=== PATIENT | female | born 1975 | race Caucasian/White ===

== ENCOUNTER → 2017-12-14 | Outpatient (CLI) | payer OTHER ==
--- NOTE | 2017-12-14 10:58 | MM ---
Reason for exam: screening (asymptomatic). Baseline mammogram. History: Took hormonal contraceptives for 3 years beginning at age 17. Physical Findings: Nurse did not find any significant physical abnormalities on exam. MG Screening Mammo w CAD Bilateral CC and MLO view(s) were taken. The breast tissue is heterogeneously dense. This may lower the sensitivity of mammography. Finding: There are typically benign round calcifications in both breasts. There is no discrete abnormality. These results were verbally communicated with the patient and result sheet given to the patient on 12/14/17. ASSESSMENT: Negative, BI-RAD 1 RECOMMENDATION: Routine screening mammogram of both breasts in 1 year.
== END | disposition home or self-care (01) ==
LOC: RADMAMWWP 09:21
PROVIDERS: ATTEND Family Medicine
DX: Z12.31 Encounter for screening mammogram for malignant neoplasm of breast (principal)
CPT/HCPCS: 77067

== ENCOUNTER → 2018-03-15 | Outpatient (CLI) | payer OTHER ==
--- NOTE | 2018-03-15 22:35 | CONS ---
CONSULTATION DATE OF SERVICE: 03/15/2018 A 42-year-old lady has been evaluated in the sleep center for possible obstructive sleep apnea-hypopnea syndrome. HISTORY OF PRESENT ILLNESS/SLEEP WAKE EVALUATION: The patient's usual sleep schedule on working days is from 8:30 to 9:30 p.m. until 4:00 or 5:00 am and on weekends until about 6:00 a.m. No problems with falling asleep. She reads in her bedroom. Usually sleeps on the side position with snoring and awakenings from sleep several times. Positive history of sleep talking and some possibly restless legs symptoms. During the day, the patient may feel sleepiness. [place] Sleepiness Scale is 10, but usually she does not take naps because no time. She may see some vivid dreams during the sleep, but it is more at the beginning of the night, usually in the second part of the night. Usually she wakes up with these weird dreams. PAST MEDICAL HISTORY: Positive for hypertension. PAST SURGICAL HISTORY: Cholecystectomy and D and C. SOCIAL HISTORY: Positive for smoking less than 1 pack a day for about 10 years. Alcohol consumption rarely. FAMILY HISTORY: Hypertension, heart problems, sinus headaches, emphysema, sleep apnea, snoring, thyroid problems for her mom and restless legs by her dad. REVIEW OF SYSTEMS: Awakenings from sleep, some sleepiness during the day. PHYSICAL EXAM: A 42-year-old lady without distress. BP 152/91 on left arm: 151/83 on the right arm, pulse 95, R 16, height 5 feet 9 inches, weight 221, BMI 32.6, temperature 98.0. Oxygen saturation on room air 99%. Oropharynx low position of soft palate. Neck is 14-1/2 inches in circumference. LUNGS: Clear to percussion and to auscultation. Good air exchange. No wheezing or rhonchi. HEART S1, S2 regular. No murmurs, gallops, or rubs. ABDOMEN: Obese. Soft and nontender. Bowel sounds are present. No organomegaly appreciated. EXTREMITIES: No clubbing or cyanosis. TELEMEDICINE PHYSICIAN Awake, alert, and oriented X3. Cranial nerves 2 to 7 intact. There is no fasciculation or atrophy. noted. No focal deficits observed IMPRESSION: 1. Snoring, awakenings from sleep, low position of soft palate, sleepiness. [place] Sleepiness Scale is 10. Obstructive sleep apnea-hypopnea syndrome. 2. Mild obesity BMI 32.6. 3. Restless leg symptoms. 4. Hypertension. 5. Status post cholecystectomy. 6. Status post D and C. PLAN: 1. Polysomnography for evaluation of patient's breathing during sleep. 2. CPAP/BiPAP titration if sleep study confirms obstructive sleep apnea-hypopnea syndrome. 3. Preferable position during sleep on the side. 4. No driving if patient feels any sleepiness. 5. I will see patient for follow up visit to explain results of testing and following plan. Thank you very much for referring this patient for consultation. Sincerely, Wolf Lane MD, PhD, FAASM Diplomat of [place] [employer] [place] [employer] Mainframe Systems Engineer of [facility] [place] MAGDA / PAULINO: [id number] /
== END | disposition home or self-care (01) ==
LOC: SLEEP 16:25
PROVIDERS: ATTEND Internal Medicine
DX: G47.33 Obstructive sleep apnea (adult) (pediatric) (principal); G25.81 Restless legs syndrome; M27.8 Other specified diseases of jaws; I10 Essential (primary) hypertension; E66.9 Obesity, unspecified; Z68.32 Body mass index [BMI] 32.0-32.9, adult; Z87.891 Personal history of nicotine dependence; Z90.49 Acquired absence of other specified parts of digestive tract; Z33.2 Encounter for elective termination of pregnancy
CPT/HCPCS: 99211

== ENCOUNTER → 2018-06-27 | Outpatient (CLI) | payer OTHER ==
--- NOTE | 2018-06-27 17:15 | PN ---
PROGRESS NOTE DATE OF SERVICE: 06/27/2018 This patient is a 42-year-old lady who has been followed in the sleep center for treatment of obstructive sleep apnea-hypopnea syndrome. Recently patient had a polysomnogram and CPAP titration and we discussed results of her sleep study in detail. Diagnostic sleep study showed severe sleep apnea. After titration patient received a CPAP unit, started to use it, and today is her first visit after she received her CPAP machine. I checked her reading from the machine. Usage is 100% of the nights. For 97% of the nights, , she is using it more than 4 hours. Average usage is 6 hours and 37 minutes. CPAP pressure is 9 cm of water. Apnea-hypopnea index reading from the machine is only 0.5. Leak 95% is 13.7, which is fine. Patient sleeps better with the machine. She feels better during the day, does not feel sleepy anymore, does not need to drink coffee during the day. [place] Sleepiness Scale has decreased to 3. Medications are lisinopril and vitamin E, D, B12. PHYSICAL EXAMINATION: GENERAL A pleasant lady without distress. VITAL SIGNS: BP 142/83, HR 91, RR 18, weight 226.8, temperature 99.3. Oxygen saturation at room air 98%. HEENT: PERRLA, EOMI. Evaluation of oropharynx showed tongue protrudes midline; low position of soft palate. NECK: Supple. No JVD. Thyroid is not palpable. LUNGS: Clear to percussion and to auscultation. Good air exchange. No wheezing or rhonchi. HEART: S1, S2 regular. No murmurs, gallops or rubs. ABDOMEN: Slightly obese. EXTREMITIES : No clubbing or cyanosis. RESERVOIR ENGINEERING MANAGER: Awake, alert, and oriented X3. Cranial nerves 2 to 7 intact. There is no fasciculation or atrophy. noted. No focal deficits observed. IMPRESSION: 1. Severe obstructive sleep apnea-hypopnea syndrome; apnea-hypopnea index 38.4 with oxygen desaturation to 77.2%, under full control with CPAP. Patient demonstrated 100% compliance with treatment, benefitting from treatment. 2. Hypertension. 3. Mild obesity. 4. Status post cholecystectomy. 5. Status post dilatation and curettage. PLAN: 1. Patient will continue to use her CPAP equipment every night for the whole night. 2. Losing weight. 3. Sleep hygiene with regular time in bed for at least 8 hours. 4. No driving if feeling any sleepiness. 5. We will maintain prescription for all necessary CPAP supplies. 6. Follow-up visit in about 10 months or earlier if patient has any problems. Thank you very much for allowing me to participate in the management of your patient. Sincerely, Wolf Lane MD, PhD, FAASM Diplomat of [place] [employer] [place] [employer] Oil And Gas Specialist of [facility] [place] MMODL / IJN: [id number] /
== END | disposition home or self-care (01) ==
LOC: SLEEP 15:15
PROVIDERS: ATTEND Internal Medicine
DX: G47.33 Obstructive sleep apnea (adult) (pediatric) (principal); I10 Essential (primary) hypertension; E66.9 Obesity, unspecified; Z99.89 Dependence on other enabling machines and devices; Z79.899 Other long term (current) drug therapy; Z90.49 Acquired absence of other specified parts of digestive tract; Z98.890 Other specified postprocedural states

== ENCOUNTER → 2019-09-11 | Outpatient (CLI) | payer OTHER ==
--- NOTE | 2019-09-11 08:41 | US ---
EXAMINATION TYPE: US abdomen limited DATE OF EXAM: 09/11/2019 COMPARISON: NONE CLINICAL HISTORY: R10.32 left lower quad pain. LLQ Pain TECHNIQUE/FINDINGS: Targeted ultrasound was performed in the area of patient's pain within the left l ower quadrant imaging. Area of pain near umbilicus question possible break in wall no movement seen d uring scan. This measures approximately 0.5 cm. IMPRESSION: 0.5 cm periumbilical hernia is seen without protrusion of bowel. Real-time scanning was performed by the counter intelligence utilizing Valsalva and additional dynamic maneuve rs to assess for hernia. Images of the contralateral side were also acquired for direct comparison.
== END | disposition home or self-care (01) ==
LOC: RADUSWWP 07:55
PROVIDERS: ATTEND Family Medicine
DX: K42.9 Umbilical hernia without obstruction or gangrene (principal); Z88.0 Allergy status to penicillin
CPT/HCPCS: 76705

== ENCOUNTER → 2020-10-28 | Outpatient (CLI) | payer OTHER ==
--- NOTE | 2020-11-02 08:57 | MM ---
Reason for exam: screening (asymptomatic). Last mammogram was performed 2 years and 10 months ago. History: Took hormonal contraceptives for 3 years beginning at age 17. Physical Findings: A clinical breast exam by your physician is recommended on an annual basis and results should be correlated with mammographic findings. MG Screening Mammo w CAD Bilateral CC and MLO view(s) were taken. Prior study comparison: December 14, 2017, bilateral MG screening mammo w CAD. There are scattered fibroglandular densities. No significant changes when compared with prior studies. ASSESSMENT: Benign, BI-RAD 2 RECOMMENDATION: Routine screening mammogram of both breasts in 1 year.
== END | disposition home or self-care (01) ==
LOC: RADMAMWWP 09:09
PROVIDERS: ATTEND Family Medicine
DX: Z12.31 Encounter for screening mammogram for malignant neoplasm of breast (principal)
CPT/HCPCS: 77067

== ENCOUNTER 2021-11-17 16:01 | Emergency (ER) | payer OTHER ==
[2021-11-17 16:51] VITALS: BP 167/105; PULSE 95; RESP 16; TEMP 97.8
[2021-11-17 19:22] LABS: Basophils # (A) 0.1 k/uL (0-0.2); Basophils % (A) 0 %; Eosinophils # (A) 0.3 k/uL (0-0.7); Eosinophils % (A) 2 %; HCT 42.9 % (34.0-46.0); HGB 14.2 gm/dL (11.4-16.0); Lymphocytes # (A) 1.8 k/uL (1.0-4.8); Lymphocytes % (A) 14 %; MCH 32.2 pg (25.0-35.0); MCHC 33.1 g/dL (31.0-37.0); MCV 97.2 fL (80.0-100.0); Mean Platelet Volume 7.5; Monocytes # (A) 0.3 k/uL (0-1.0); Monocytes % (A) 2 %; Neutrophils # (A) 10.9 k/uL (1.3-7.7); Neutrophils % (A) 81 %; Platelet Count 290 k/uL (150-450); RBC 4.41 m/uL (3.80-5.40); RDW 12.3 % (11.5-15.5); WBC 13.4 k/uL (3.8-10.6)
[2021-11-17 19:27] LABS: Appearance,Urine Clear (Clear); Bacteria,Urine Rare /hpf; Bilirubin,Urine Negative (Negative); Blood,Urine Small (Negative); Color,Urine Yellow; Glucose,Urine (UA) Negative (Negative); Ketones,Urine 1+ (Negative); Leukocyte Esterase,Urine Negative (Negative); Mucus,Urine Rare /hpf; Nitrite,Urine Negative (Negative); Protein,Urine Negative (Negative); RBC,Urine 3 /hpf (0-5); Specific Gravity,Urine 1.007 (1.001-1.035); Squamous Epithelial Cell,Urine 3 /hpf (0-4); Urobilinogen,Urine <2.0 mg/dL (<2.0); WBC,Urine 1 /hpf (0-5)
[2021-11-17 19:31] LABS: ALT 16 U/L (4-34); AST 22 U/L (14-36); African American GFR (CKD) >90 (>60 ml/min/1.73 sqM); Alkaline Phosphatase 66 U/L (38-126); Anion Gap 5 mmol/L; Blood Urea Nitrogen 7 mg/dL (7-17); Calcium 9.2 mg/dL (8.4-10.2); Carbon Dioxide 27 mmol/L (22-30); Chloride 103 mmol/L (98-107); Glucose 105 mg/dL (74-99); Non-African American GFR(CKD) >90 (>60 ml/min/1.73 sqM); Potassium 3.9 mmol/L (3.5-5.1); Sodium 135 mmol/L (137-145); Total Bilirubin 0.5 mg/dL (0.2-1.3); Total Protein 6.9 g/dL (6.3-8.2)
--- NOTE | 2021-11-17 19:48 | CT ---
EXAMINATION TYPE: CT abdomen pelvis w con DATE OF EXAM: 11/17/2021 COMPARISON: None available HISTORY: Umbilical hernia. CT DLP: 1425.5 mGycm Automated exposure control for dose reduction was used. TECHNIQUE: Helical acquisition of images was performed from the lung bases through the pelvis. CONTRAST: Performed without Oral Contrast and with IV Contrast, patient injected with 100 mL of Isovue 300. FINDINGS: LUNG BASES: No significant abnormality is appreciated. LIVER/GB: No acute abnormality is appreciated. Cholecystectomy. PANCREAS: No significant abnormality is seen. SPLEEN: No acute abnormality is seen. Incidental 2.3 cm low attenuating focus in the lateral spleen. ADRENALS: No significant abnormality is seen. KIDNEYS: No acute abnormality is seen. Multiple left and few right renal cysts measuring up to 8 mm. Also 2 mm nonobstructing left renal calculus. FREE AIR: No free air is visualized. RETROPERITONEAL ADENOPATHY: None visualized REPRODUCTIVE ORGANS: No significant abnormality is seen URINARY BLADDER: No significant abnormality is seen. PELVIC ADENOPATHY: None visualized. OSSEOUS STRUCTURES: Small to moderate sized fat-containing periumbilical hernia with wall defect jordyn suring 2 cm transverse. No bowel obstruction or free fluid. BOWEL: No significant abnormality is seen. OTHER: None IMPRESSION: SMALL TO MODERATE SIZED PERIUMBILICAL HERNIA. NO BOWEL OBSTRUCTION. INCIDENTAL LOW ATTENUATING SPLENIC FOCUS COMPATIBLE WITH CYSTS. ADDITIONAL CHRONIC AND INCIDENTAL FINDINGS ABOVE.
--- NOTE | 2021-11-17 20:03 | ED ---
Abdominal Pain HPI - General Chief Complaint: Abdominal Pain Stated Complaint: hernia, abd pain Time Seen by Provider: 11/17/21 18:31 Source: patient, family, RN notes reviewed Mode of arrival: wheelchair Limitations: no limitations - History of Present Illness Initial Comments: Patient is a 45 she'll female that presents to the emergency Department due to a concerning bulge in her umbilical area, she notes a history of hernia. Patient notes that prior to arrival she had a soft ball sized bulge to her mid abdomen. She notes since arrival the bulge has reduced on its own. She notes her pain is approximate 2-3 out of 10 with no relief. Patient declined any pain medication this time. He was well-appearing and gets restricted she denied any chest pain shortness breath headache nausea vomiting diarrhea constipation fever fatigue chills. Review of Systems ROS Statement: Those systems with pertinent positive or pertinent negative responses have been documented in the HPI. ROS Other: All systems not noted in ROS Statement are negative. Past Medical History Past Medical History: Hypertension History of Any Multi-Drug Resistant Organisms: None Reported Additional Past Surgical History / Comment(s): d&c Past Psychological History: No Psychological Hx Reported Smoking Status: Current some day smoker Past Alcohol Use History: None Reported Past Drug Use History: None Reported General Exam Limitations: no limitations General appearance: alert, in no apparent distress Head exam: Present: atraumatic, normocephalic, normal inspection Eye exam: Present: normal appearance, PERRL, EOMI. Absent: scleral icterus, conjunctival injection, periorbital swelling ENT exam: Present: normal exam, mucous membranes moist Neck exam: Present: normal inspection Respiratory exam: Present: normal lung sounds bilaterally. Absent: respiratory distress, wheezes, rales, rhonchi, stridor Cardiovascular Exam: Present: regular rate, normal rhythm, normal heart sounds. Absent: systolic murmur, diastolic murmur, rubs, gallop, clicks GI/Abdominal exam: Present: soft, tenderness, normal bowel sounds, hernia (Small periumbilical). Absent: distended, guarding, rebound, rigid Extremities exam: Present: normal inspection, full ROM, normal capillary refill. Absent: tenderness, pedal edema, joint swelling, calf tenderness Neurological exam: Present: alert, oriented X3 Psychiatric exam: Present: normal affect, normal mood Skin exam: Present: warm, dry, intact, normal color. Absent: rash Course Vital Signs 11/17/21 16:48 Temperature 97.8 F Pulse Rate 95 Respiratory 16 Rate Blood Pressure 167/105 O2 Sat by Pulse 96 Oximetry Medical Decision Making - Medical Decision Making 45 she'll female complaining of eye. Umbilical hernia. Labs, CT of the abdomen and pelvis Labs unremarkable within normal limits per Computed tomography scan shows a 2 cm fat-containing hernia with no structural. Patient was informed that results in a school discharge home with follow-up to . Case discussed with Dr. Douglas. - Lab Data Result diagrams: 11/17/21 19:12 11/17/21 19:12 Lab Results 11/17/21 11/17/21 11/17/21 Range/Units 19:12 19:12 19:16 WBC 13.4 H (3.8-10.6) k/uL RBC 4.41 (3.80-5.40) m/uL Hgb 14.2 (11.4-16.0) gm/dL Hct 42.9 (34.0-46.0) % MCV 97.2 (80.0-100.0) fL MCH 32.2 (25.0-35.0) pg MCHC 33.1 (31.0-37.0) g/dL RDW 12.3 (11.5-15.5) % Plt Count 290 (150-450) k/uL MPV 7.5 Neutrophils % 81 % Lymphocytes % 14 % Monocytes % 2 % Eosinophils % 2 % Basophils % 0 % Neutrophils # 10.9 H (1.3-7.7) k/uL Lymphocytes # 1.8 (1.0-4.8) k/uL Monocytes # 0.3 (0-1.0) k/uL Eosinophils # 0.3 (0-0.7) k/uL Basophils # 0.1 (0-0.2) k/uL Sodium 135 L (137-145) mmol/L Potassium 3.9 (3.5-5.1) mmol/L Chloride 103 (98-107) mmol/L Carbon Dioxide 27 (22-30) mmol/L Anion Gap 5 mmol/L BUN 7 (7-17) mg/dL Creatinine 0.54 (0.52-1.04) mg/dL Est GFR (CKD-EPI)AfAm >90 (>60 ml/min/1.73 sqM) Est GFR (CKD-EPI)NonAf >90 (>60 ml/min/1.73 sqM) Glucose 105 H (74-99) mg/dL Calcium 9.2 (8.4-10.2) mg/dL Total Bilirubin 0.5 (0.2-1.3) mg/dL AST 22 (14-36) U/L ALT 16 (4-34) U/L Alkaline Phosphatase 66 (38-126) U/L Total Protein 6.9 (6.3-8.2) g/dL Albumin 4.0 (3.5-5.0) g/dL Urine Color Yellow Urine Appearance Clear (Clear) Urine pH 6.0 (5.0-8.0) Ur Specific [place] 1.007 (1.001-1.035) Urine Protein Negative (Negative) Urine Glucose (UA) Negative (Negative) Urine Ketones 1+ H (Negative) Urine Blood Small H (Negative) Urine Nitrite Negative (Negative) Urine Bilirubin Negative (Negative) Urine Urobilinogen <2.0 (<2.0) mg/dL Ur Leukocyte Esterase Negative (Negative) Urine RBC 3 (0-5) /hpf Urine WBC 1 (0-5) /hpf Ur Squamous Epith Cells 3 (0-4) /hpf Urine Bacteria Rare H (None) /hpf Urine Mucus Rare H (None) /hpf - Radiology Data Radiology results: report reviewed, image reviewed CT of the abdomen and pelvis: Small to moderate sized periumbilical hernia. No bowel obstruction. Incidental low attenuating splenic focus compatible a cyst. Additional chronic and incidental findings as above. Disposition Clinical Impression: Periumbilical hernia, Abdominal pain Disposition: HOME SELF-CARE Condition: Stable Instructions (If sedation given, give patient instructions): Abdominal Pain (ED) Additional Instructions: Please return to the Emergency Department if symptoms worsen or any other concerns. Follow-up with primary care in 1-2 days. Follow-up with GI this is possible. Is patient prescribed a controlled substance at d/c from ED?: No Referrals: John Coker MD [Primary Care Provider] - 1-2 days Ella Friedman MD [STAFF PHYSICIAN] - 1-2 days Time of Disposition: 20:03
== END 2021-11-17 21:00 | disposition home or self-care (01) ==
LOC: EC 16:01
DX: K42.9 Umbilical hernia without obstruction or gangrene (principal); R10.9 Unspecified abdominal pain; I10 Essential (primary) hypertension; F17.200 Nicotine dependence, unspecified, uncomplicated
CPT/HCPCS: 36415; 80053; 85025; 81001; 74177; 99284; Q9967

== ENCOUNTER 2023-01-15 16:57 | Inpatient (IN) | payer OTHER ==
[2023-01-15] MEDS ORDERED: SODIUM CHLORIDE 0.9% 1,000 ML IV STA ×2 (17:34→20:14)
[2023-01-15] MEDS ORDERED: KETOROLAC 15 MG/ML 1 ML VIAL IVP STA (17:34)
[2023-01-15 17:48] LABS: Basophils # (A) 0.1 k/uL (0-0.2); Basophils % (A) 1 %; Eosinophils # (A) 0.1 k/uL (0-0.7); Eosinophils % (A) 1 %; HCT 42.6 % (34.0-46.0); HGB 14.2 gm/dL (11.4-16.0); Lymphocytes % (A) 24 %; MCH 31.4 pg (25.0-35.0); MCHC 33.3 g/dL (31.0-37.0); MCV 94.2 fL (80.0-100.0); Mean Platelet Volume 7.7; Monocytes # (A) 0.4 k/uL (0-1.0); Monocytes % (A) 5 %; Neutrophils # (A) 5.7 k/uL (1.3-7.7); Neutrophils % (A) 68 %; Platelet Count 266 k/uL (150-450); RBC 4.52 m/uL (3.80-5.40); RDW 12.2 % (11.5-15.5); WBC 8.3 k/uL (3.8-10.6)
--- NOTE | 2023-01-15 17:50 | ED ---
Abdominal Pain HPI - General Chief Complaint: Abdominal Pain Stated Complaint: Abd Pain Time Seen by Provider: 01/15/23 17:21 Source: patient, RN notes reviewed Mode of arrival: ambulatory Limitations: no limitations - History of Present Illness Initial Comments: Patient is a 47-year-old female presenting to the emergency room with complaints of lower abdominal pain that began approximately 1 hour prior to her arrival to the emergency room. She denies any associated symptoms including any nausea, vomiting or diarrhea. She reports bowel movement earlier today which was normal in consistency and size were her usual bowel movements. She denies any chest pain, shortness of breath, dysuria, urinary frequency, headache, dizziness, fevers or chills. She has had a previous cholecystectomy. She reports having a known abdominal hernia and states that there was discussion in the past regarding possible surgical intervention but she is not currently following with the surgeon. In addition to her hernia she has a past medical history significa nt for hypertension. - Related Data Home Medications Medication Instructions Recorded Confirmed Cyanocobalamin/Cobamamide [Vitamin 1 tab SUBLINGUAL DAILY 01/15/23 01/15/23 B-12 5,000 Mcg Tab Sl] Loratadine 10 mg PO DAILY 01/15/23 01/15/23 Pseudoephedrine 12Hr [Sudafed 12 60 mg PO Q12HR PRN 01/15/23 01/15/23 Hour] buPROPion XL [Wellbutrin XL] 150 mg PO DAILY 01/15/23 01/15/23 lisinopriL [Zestril] 10 mg PO DAILY 01/15/23 01/15/23 Allergies Allergy/AdvReac Type Severity Reaction Status Date / Time fluticasone [From Flonase] Allergy Swelling Verified 01/15/23 18:13 in back of throat, tingling Penicillins Allergy Rash/Hives Verified 01/15/23 18:13 Review of Systems ROS Statement: Those systems with pertinent positive or pertinent negative responses have been documented in the HPI. ROS Other: All systems not noted in ROS Statement are negative. Past Medical History Past Medical History: Hypertension History of Any Multi-Drug Resistant Organisms: None Reported Past Surgical History: Cholecystectomy Additional Past Surgical History / Comment(s): d&c Past Psychological History: No Psychological Hx Reported Smoking Status: Current some day smoker Past Alcohol Use History: None Reported Past Drug Use History: None Reported General Exam - General Exam Comments Initial Comments: GENERAL: No acute distress, well developed, well nourished. HEENT: Normocephalic, atraumatic. Pupils equal, round, reactive to light. Moist mucous membranes. LUNGS: No respiratory distress. Clear to auscultation, no adventitious sounds, no use of accessory muscles. HEART: Regular rate and rhythm without murmur, rub, or gallop. ABDOMEN: Normal bowel sounds. Soft, non-distended. Upper abdominal tenderness. Nonreducible abdominal wall hernia just above the umbilical region tender but not rigid. No skin discoloration. BACK: Normal inspection. EXTREMITIES: No edema. No tenderness. Moves all extremities. NEUROLOGIC: Alert & oriented x 3. CN II-XII grossly intact. PSYCHIATRIC: Normal affect and behavior. DERMATOLOGIC: Skin intact, without rashes or lesions noted. Limitations: no limitations Course Vital Signs 01/15/23 17:16 Temperature 98 F Pulse Rate 74 Respiratory 18 Rate Blood Pressure 156/82 O2 Sat by Pulse 100 Oximetry Medical Decision Making - Medical Decision Making Was pt. sent in by a medical professional or institution (, PA, FIRE SAFETY INSPECTOR, urgent care, hospital, or halfway...) When possible be specific @ -No Did you speak to anyone other than the patient for history (EMS, parent, family, police, friend...)? What history was obtained from this source @ -No Did you review nursing and triage notes (agree or disagree)? Why? @ -I reviewed and agree with nursing and triage notes Were old charts reviewed (outside hosp., previous admission, EMS record, old EKG, old radiological studies, urgent care reports/EKG's, halfway records)? Report findings @ -Yes CAT scan report from November 2021 reviewed Differential Diagnosis (chest pain, altered mental status, abdominal pain women, abdominal pain men, vaginal bleeding, weakness, fever, dyspnea, syncope, headache, dizziness, GI bleed, back pain, seizure, CVA, palpatations, mental health, musculoskeletal)? @ -Differential Abdominal Pain Women: Appendicitis, Cholecystitis, diverticulosis, ischemic bowel, pancreatitis, hepatitis, UTI, gastroenteritis, AAA, incarcerated hernia, bowel obstruction, constipation, inflammatory bowel, hepatitis, peptic ulcer disease, splenic infarction, perforated viscus, vulvitis, ovarian torsion, PID, kidney stone, placenta abruption, this is not meant to be an all-inclusive list EKG interpreted by me (3pts min.). @ -None done X-rays interpreted by me (1pt min.). @ -KUB: No acute abdominal process noted normal bowel and gas pattern. CT interpreted by me (1pt min.). @ -CT of the abdomen and pelvis with contrast: Ventral wall hernia. Per radiologist dilated loops of bowel concerning for small bowel obstruction. U/S interpreted by me (1pt. min.). @ -None done What testing was considered but not performed or refused? (CT, X-rays, U/S, l abs)? Why? @ -None What meds were considered but not given or refused? Why? @ -None Did you discuss the management of the patient with other professionals (professionals i.e. , PA, FIRE SAFETY INSPECTOR, lab, RT, psych nurse, perinatal social worker, java software engineer, teacher, geological technical officer, pillowcase folder)? Give summary @ -Spoke with Dr. Madrigal on-call surgeon regarding patient presentation and workup. She advised will stay on consult but would like patient admitted to medicine. Spoke with Dr. Olivas on for patient's primary care provider Dr. Coker who advised okay for medical admission but wishes consult for surgery to be changed to Dr. Franco. Will place admission orders and consult Dr. Franco. Was smoking cessation discussed for >3mins.? @ -No Was critical care preformed (if so, how long)? @ -No Were there social determinants of health that impacted care today? How? (Homelessness, low income, unemployed, alcoholism, drug addiction, transportation, low edu. Level, literacy, decrease access to med. care, fci, rehab)? @ -No Was there de-escalation of care discussed even if they declined (Discuss DNR or withdrawal of care, Hospice)? DNR status @ -No What co-morbidities impacted this encounter? (DM, HTN, Smoking, COPD, CAD, Cancer, CVA, ARF, Chemo, Hep., AIDS, mental health diagnosis, sleep apnea, morbid obesity)? @ -None Was patient admitted / discharged? Hospital course, mention meds given and route, prescriptions, significant lab abnormalities, going to OR and other pertinent info. @ -47-year-old female presenting to the emergency room with complaints of abdominal pain with onset approximately one hour prior to presentation without associated symptoms. Will begin workup with CBC, CMP, amylase, lipase, urinalysis and viral swabbing. Will give IV hydration and Toradol for pain and monitor response. Continued mild abdominal pain with nausea will check computed tomography scan of the abdomen and give Zofran for nausea. CBC without abnormalities. CMP demonstrates elevated glucose 183 sodium low 136 no other abnormalities remaining electrolytes normal. Renal function normal, liver function normal, amylase lipase and alkaline phosphatase normal lactic acid normal 1.3. Urinalysis with trace blood and trace glucose rare yeast rare mucus rare sediment negative for leukocyte Estrace or ketones. Urine hCG negative. Viral swabs for COVID, influenza and RSV negative. CT scan demonstrates ventral wall hernia with concern for small bowel obstruction. Spoke with on-call surgeon regarding presentation she advised admission to medicine with evaluation in a.m. Spoke with patient's attending Dr. Olivas regarding surgery's recommendation. He advised okay for admission but changes surgeon to Dr. Franco. Will place admission orders and consult Dr. franco per his request. Will continue I pain medication, nausea medication and IV hydration and keep patient nothing by mouth. Will also order NG tube placement if vomiting occurs. Will admit patient in stable condition to medical surgical unit under Dr. Olivas with surgical consult for ventral wall hernia with small bowel obstruction. Undiagnosed new problem with uncertain prognosis? @ -No Drug Therapy requiring intensive monitoring for toxicity (Heparin, Nitro, In sulin, Cardizem)? @ -No Were any procedures done? @ -No Diagnosis/symptom? @ -Abdominal wall hernia with small bowel obstruction Acute, or Chronic, or Acute on Chronic? @ -Acute on chronic Uncomplicated (without systemic symptoms) or Complicated (systemic symptoms)? @ -Complicated Side effects of treatment? @ -No Exacerbation, Progression, or Severe Exacerbation? @ -No Poses a threat to life or bodily function? How? (Chest pain, [place], [place], pneumonia, PE, COPD, DKA, ARF, appy, cholecystitis, CVA, Diverticulitis, Homicidal, Suicidal, threat to staff... and all critical care pts) @ -Yes Case discussed with Dr. Edge. - Lab Data Result diagrams: 01/15/23 17:35 01/15/23 17:35 Lab Results 01/15/23 01/15/23 01/15/23 Range/Units 17:35 17:35 17:36 WBC 8.3 (3.8-10.6) k/uL RBC 4.52 (3.80-5.40) m/uL Hgb 14.2 (11.4-16.0) gm/dL Hct 42.6 (34.0-46.0) % MCV 94.2 (80.0-100.0) fL MCH 31.4 (25.0-35.0) pg MCHC 33.3 (31.0-37.0) g/dL RDW 12.2 (11.5-15.5) % Plt Count 266 (150-450) k/uL MPV 7.7 Neutrophils % 68 % Lymphocytes % 24 % Monocytes % 5 % Eosinophils % 1 % Basophils % 1 % Neutrophils # 5.7 (1.3-7.7) k/uL Lymphocytes # 2.0 (1.0-4.8) k/uL Monocytes # 0.4 (0-1.0) k/uL Eosinophils # 0.1 (0-0.7) k/uL Basophils # 0.1 (0-0.2) k/uL Sodium 136 L (137-145) mmol/L Potassium 4.0 (3.5-5.1) mmol/L Chloride 102 (98-107) mmol/L Carbon Dioxide 28 (22-30) mmol/L Anion Gap 6 mmol/L BUN 7 (7-17) mg/dL Creatinine 0.55 (0.52-1.04) mg/dL Est GFR (CKD-EPI)AfAm >90 (>60 ml/min/1.73 sqM) Est GFR (CKD-EPI)NonAf >90 (>60 ml/min/1.73 sqM) Glucose 183 H (74-99) mg/dL Plasma Lactic Acid Asim 1.3 (0.7-2.0) mmol/L Calcium 9.1 (8.4-10.2) mg/dL Total Bilirubin 0.3 (0.2-1.3) mg/dL AST 19 (14-36) U/L ALT 18 (4-34) U/L Alkaline Phosphatase 73 (38-126) U/L Total Protein 7.0 (6.3-8.2) g/dL Albumin 4.2 (3.5-5.0) g/dL Amylase 45 (30-110) U/L Lipase 41 (23-300) U/L Urine Color Urine Appearance (Clear) Urine pH (5.0-8.0) Ur Specific Colton (1.001-1.035) Urine Protein (Negative) Urine Glucose (UA) (Negative) Urine Ketones (Negative) Urine Blood (Negative) Urine Nitrite (Negative) Urine Bilirubin (Negative) Urine Urobilinogen (<2.0) mg/dL Ur Leukocyte Esterase (Negative) Urine RBC (0-5) /hpf Urine WBC (0-5) /hpf Ur Squamous Epith Cells (0-4) /hpf Amorphous Sediment (None) /hpf Urine Mucus (None) /hpf Urine Yeast (Budding) (None) /hpf Urine HCG, Qual (Not Detectd) Influenza Type A (PCR) (Not Detectd) Influenza Type B (PCR) (Not Detectd) RSV (PCR) (Not Detectd) SARS-CoV-2 (PCR) (Not Detectd) 01/15/23 01/15/23 01/15/23 Range/Units 17:36 18:30 18:30 WBC (3.8-10.6) k/uL RBC (3.80-5.40) m/uL Hgb (11.4-16.0) gm/dL Hct (34.0-46.0) % MCV (80.0-100.0) fL MCH (25.0-35.0) pg MCHC (31.0-37.0) g/dL RDW (11.5-15.5) % Plt Count (150-450) k/uL MPV Neutrophils % % Lymphocytes % % Monocytes % % Eosinophils % % Basophils % % Neutrophils # (1.3-7.7) k/uL Lymphocytes # (1.0-4.8) k/uL Monocytes # (0-1.0) k/uL Eosinophils # (0-0.7) k/uL Basophils # (0-0.2) k/uL Sodium (137-145) mmol/L Potassium (3.5-5.1) mmol/L Chloride (98-107) mmol/L Carbon Dioxide (22-30) mmol/L Anion Gap mmol/L BUN (7-17) mg/dL Creatinine (0.52-1.04) mg/dL Est GFR (CKD-EPI)AfAm (>60 ml/min/1.73 sqM) Est GFR (CKD-EPI)NonAf (>60 ml/min/1.73 sqM) Glucose (74-99) mg/dL Plasma Lactic Acid Asim (0.7-2.0) mmol/L Calcium (8.4-10.2) mg/dL Total Bilirubin (0.2-1.3) mg/dL AST (14-36) U/L ALT (4-34) U/L Alkaline Phosphatase (38-126) U/L Total Protein (6.3-8.2) g/dL Albumin (3.5-5.0) g/dL Amylase (30-110) U/L Lipase (23-300) U/L Urine Color Yellow Urine Appearance Cloudy H (Clear) Urine pH 7.0 (5.0-8.0) Ur Specific Colton 1.014 (1.001-1.035) Urine Protein Negative (Negative) Urine Glucose (UA) Trace H (Negative) Urine Ketones Negative (Negative) Urine Blood Trace H (Negative) Urine Nitrite Negative (Negative) Urine Bilirubin Negative (Negative) Urine Urobilinogen <2.0 (<2.0) mg/dL Ur Leukocyte Esterase Negative (Negative) Urine RBC 7 H (0-5) /hpf Urine WBC 1 (0-5) /hpf Ur Squamous Epith Cells 3 (0-4) /hpf Amorphous Sediment Rare H (None) /hpf Urine Mucus Rare H (None) /hpf Urine Yeast (Budding) Rare H (None) /hpf Urine HCG, Qual Not Detected (Not Detectd) Influenza Type A (PCR) Not Detected (Not Detectd) Influenza Type B (PCR) Not Detected (Not Detectd) RSV (PCR) Not Detected (Not Detectd) SARS-CoV-2 (PCR) Not Detected (Not Detectd) - Radiology Data Radiology results: report reviewed, image reviewed Disposition Clinical Impression: Hernia of abdominal cavity, with obstruction Disposition: ADMITTED IP TO THIS HOSP Condition: Stable Is patient prescribed a controlled substance at d/c from ED?: No Referrals: John Coker MD [Primary Care Provider] - 1-2 days Time of Disposition: 20:49
--- NOTE | 2023-01-15 18:00 | XR ---
EXAMINATION TYPE: XR KUB DATE OF EXAM: 01/15/2023 5:53 PM INDICATION: Patient age:Female; 47 years old; Reason for study: abdominal pain; PHH. COMPARISON: CT abdomen pelvis on 10/25/2022 TECHNIQUE: One radiographic view of the abdomen was obtained. FINDINGS: The bowel gas pattern is nonspecific without dilated loops of small or large bowel. There i s no evidence for organomegaly or pneumoperitoneum. Cholecystectomy clips in the right upper quadrant . The osseous structures are intact. Pelvic phleboliths are present. Fecal material and gas are dem onstrated throughout the colon and rectum. IMPRESSION: Nonspecific bowel gas pattern without radiographic evidence for acute process.
[2023-01-15 18:01] LABS: ALT 18 U/L (4-34); AST 19 U/L (14-36); African American GFR (CKD) >90 (>60 ml/min/1.73 sqM); Albumin 4.2 g/dL (3.5-5.0); Alkaline Phosphatase 73 U/L (38-126); Amylase 45 U/L (30-110); Anion Gap 6 mmol/L; Blood Urea Nitrogen 7 mg/dL (7-17); Calcium 9.1 mg/dL (8.4-10.2); Carbon Dioxide 28 mmol/L (22-30); Chloride 102 mmol/L (98-107); Glucose 183 mg/dL (74-99); Lipase 41 U/L (23-300); Non-African American GFR(CKD) >90 (>60 ml/min/1.73 sqM); Sodium 136 mmol/L (137-145); Total Bilirubin 0.3 mg/dL (0.2-1.3)
[2023-01-15] MEDS ORDERED: ONDANSETRON 4 MG/2 ML VIAL IVP STA (18:34)
[2023-01-15 18:42] LABS: Amorphous Sediment,Urine Rare /hpf; Appearance,Urine Cloudy (Clear); Bilirubin,Urine Negative (Negative); Blood,Urine Trace (Negative); Budding Yeast,Urine Rare /hpf; Color,Urine Yellow; Glucose,Urine (UA) Trace (Negative); Ketones,Urine Negative (Negative); Leukocyte Esterase,Urine Negative (Negative); Mucus,Urine Rare /hpf; Nitrite,Urine Negative (Negative); Protein,Urine Negative (Negative); RBC,Urine 7 /hpf (0-5); Specific Gravity,Urine 1.014 (1.001-1.035); Squamous Epithelial Cell,Urine 3 /hpf (0-4); Urobilinogen,Urine <2.0 mg/dL (<2.0); WBC,Urine 1 /hpf (0-5)
--- NOTE | 2023-01-15 19:51 | CT ---
EXAMINATION TYPE: CT abdomen pelvis w con CT DLP: 1302.7 mGycm, Automated exposure control for dose reduction was used. DATE OF EXAM: 01/15/2023 7:26 PM COMPARISON: Abdominal KUB 01/15/2023 CT abdomen pelvis 11/17/2021 CLINICAL INDICATION:Female, 47 years old with history of abdominal pain; abdominal pain, vomiting TECHNIQUE: Axial CT of the abdomen and pelvis. Sagittal and coronal reformats were created on a [employer] workstation. Contrast used:100 mL of Isovue 300 with IV Contrast, Oral contrast used: without Oral Contrast FINDINGS: LOWER CHEST: Posterior dependent subsegmental atelectasis is noted. ABDOMEN LIVER: Unremarkable GALLBLADDER AND BILE DUCTS: The gallbladder is surgically absent. PANCREAS: Unremarkable. SPLEEN: Well-circumscribed cyst measuring 3.4 x 3.9 cm (series 201, image 11). ADRENAL GLANDS: Unremarkable. KIDNEYS AND URETERS: Bilateral subcentimeter low densities, physically renal cysts. Nonobstructing 2 mm calculus in the left lower pole. No evidence for hydronephrosis. PELVIS BLADDER: Unremarkable REPRODUCTIVE: Unremarkable. ABDOMEN & PELVIS STOMACH AND BOWEL: Stomach and duodenum are unremarkable. Proximal small bowel is normal in caliber. Bowel containing ventral abdominal wall hernia, small bowel loops within the hernia are dilated with subtle, hypoenhancement of the bowel wall (series 201, image 46). Distal small bowel loops are collap sed. Colonic bowel is grossly unremarkable. Appendix is normal in appearance. PERITONEUM: No evidence for pneumoperitoneum. Trace ascites within the ventral hernia sac. VASCULATURE: Mild atherosclerotic calcifications are present throughout the abdominal aorta and its b ranches. No evidence of aortic aneurysm. MUSCULOSKELETAL: No acute osseous abnormalities. Mild disc degeneration changes are present throughou t the thoracolumbar spine. Mild dextro scoliotic curvature. Multiple focal areas of sclerosis within the pelvis and lumbar spine, likely small bone islands. LYMPH NODES: No gross evidence for lymphadenopathy. SOFT TISSUE/ABDOMINAL WALL: Ventral abdominal wall hernia, the measures 2.1 x 2.67 m at the neck (ser ies 201, image 42 and series 203, image 70). Ventral hernia contains dilated loops of small bowel and ascites. IMPRESSION: 1. Ventral abdominal wall hernia containing dilated loops of small bowel and ascites. CT findings are concerning for focal small bowel obstruction. 2. Nonobstructing left renal calculus. 3. Low attenuating simple splenic cyst.
[2023-01-15] MEDS: MORPHINE SULFATE 4 MG/ML SYRINGE IVP PRN (20:38)
[2023-01-15] MEDS: ONDANSETRON 4 MG/2 ML VIAL IVP PRN (20:38)
[2023-01-15] MEDS ORDERED: NALOXONE 0.4 MG/ML 1 ML VIAL IV PRN (20:49)
[2023-01-16] MEDS: MORPHINE SULFATE 4 MG/ML SYRINGE IVP PRN ×2 (02:18→09:52)
[2023-01-16] MEDS: ONDANSETRON 4 MG/2 ML VIAL IVP PRN ×3 (02:18→15:50)
--- NOTE | 2023-01-16 10:27 | P.GSCN ---
History of Present Illness Consult date: 01/16/23 History of present illness: CHIEF COMPLAINT: Abdominal pain HISTORY OF PRESENT ILLNESS: This is a 47-year-old female presented to the hospital with complaints of abdominal pain. She has a known ventral hernia for several years. She has been just watching it and had been followed by her PCP who told her she had did not require surgery yet. However, patient reports yesterday she started having increasing pain. Hernia became hard and firm. She was nauseated. No vomiting. She reports that she has been dealing with constipation usually during her menstrual cycle. She did have a normal bowel movement yesterday. Computed tomography scan abdomen and pelvis completed that did show a ventral abdominal wall hernia containing dilated loops of small bowel and ascites. CT and findings are concerning for focal small bowel obstruction. Patient has had some mild tachycardia. She is afebrile. Patient does report that her pain is less than yesterday. And the nausea has also improved. Prior abdominal surgical history includes cholecystectomy. Patient denies any cardiac history. PAST MEDICAL HISTORY: Hypertension, depression PAST SURGICAL HISTORY: See below MEDICATIONS: See below ALLERGIES: See below SOCIAL HISTORY: No illicit drug use. REVIEW OF SYSTEMS: CONSTITUTIONAL: Denies fever or chills. HEENT: Denies blurred vision, vision changes, or eye pain. Denies hemoptysis CARDIOVASCULAR: Denies chest pain or pressure. RESPIRATORY: No shortness of breath. GASTROINTESTINAL: See HPI for pertinent findings HEMATOLOGIC: Denies bleeding disorders. GENITOURINARY: Denies any blood in urine or increased urinary frequency. SKIN: Denies pruitis. Denies rash. PHYSICAL EXAM: VITAL SIGNS: Reviewed GENERAL: Well-developed in no acute distress. HEENT: No sclera icterus. Extraocular movements grossly intact. Moist buccal mucosa. Head is atraumatic, normocephalic. No nasal drainage. ABDOMEN: Soft. Nondistended. Ventral hernia bulge is firm and tender with palpation. Mild erythema noted. NEUROLOGIC: Alert and oriented. Cranial nerves II through XII grossly intact. LABORATORY DATA: IMAGING: computed tomography scan abdomen and pelvis completed that did show a ventral abdominal wall hernia containing dilated loops of small bowel and ascites. CT and findings are concerning for focal small bowel obstruction. Nonobstructing l eft renal calculus. Low attenuating simple splenic cyst. ASSESSMENT: 1. Ventral abdominal wall hernia containing dilated loops of small bowel PLAN: -Patient scheduled for repair of ventral abdominal wall hernia today with Dr. Phelan -Keep patient nothing by mouth -Continue IV fluids -Continue support care Physician Check Grader note has been reviewed by physician. Signing provider agrees with the documented findings, assessment, and plan of care. Past Medical History Past Medical History: Hypertension, Sleep Apnea/CPAP/BIPAP Additional Past Medical History / Comment(s): sleep apnea with cpap History of Any Multi-Drug Resistant Organisms: None Reported Past Surgical History: Cholecystectomy Additional Past Surgical History / Comment(s): d&c Past Anesthesia/Blood Transfusion Reactions: Postoperative Nausea & Vomiting ( PONV) Past Psychological History: No Psychological Hx Reported Smoking Status: Current some day smoker Past Alcohol Use History: None Reported Past Drug Use History: None Reported Medications and Allergies Home Medications Medication Instructions Recorded Confirmed Type Cyanocobalamin/Cobamamide [Vitamin 1 tab SUBLINGUAL DAILY 01/15/23 01/15/23 Hi story B-12 5,000 Mcg Tab Sl] Loratadine 10 mg PO DAILY 01/15/23 01/15/23 History Pseudoephedrine 12Hr [Sudafed 12 60 mg PO Q12HR PRN 01/15/23 01/15/23 History Hour] buPROPion XL [Wellbutrin XL] 150 mg PO DAILY 01/15/23 01/15/23 History lisinopriL [Zestril] 10 mg PO DAILY 01/15/23 01/15/23 History Allergies Allergy/AdvReac Type Severity Reaction Status Date / Time fluticasone [From Flonase] Allergy Swelling Verified 01/15/23 18:13 in back of throat, tingling Penicillins Allergy Rash/Hives Verified 01/15/23 18:13 Surgical - Exam Vital Signs Temp Pulse Resp BP Pulse Ox 98 F 74 18 156/82 100 01/15/23 17:16 01/15/23 17:16 01/15/23 17:16 01/15/23 17:16 01/15/23 17:16 Results - Labs 01/15/23 17:35 01/15/23 17:35 Abnormal Lab Results - Last 24 Hours (Table) 01/15/23 01/15/23 Range/Units 17:35 18:30 Sodium 136 L (137-145) mmol/L Glucose 183 H (74-99) mg/dL Urine Appearance Cloudy H (Clear) Urine Glucose (UA) Trace H (Negative) Urine Blood Trace H (Negative) Urine RBC 7 H (0-5) /hpf Amorphous Sediment Rare H (None) /hpf Urine Mucus Rare H (None) /hpf Urine Yeast (Budding) Rare H (None) /hpf Diabetes panel 01/15/23 Range/Units 17:35 Sodium 136 L (137-145) mmol/L Potassium 4.0 (3.5-5.1) mmol/L Chloride 102 (98-107) mmol/L Carbon Dioxide 28 (22-30) mmol/L BUN 7 (7-17) mg/dL Creatinine 0.55 (0.52-1.04) mg/dL Glucose 183 H (74-99) mg/dL Calcium 9.1 (8.4-10.2) mg/dL AST 19 (14-36) U/L ALT 18 (4-34) U/L Alkaline Phosphatase 73 (38-126) U/L Total Protein 7.0 (6.3-8.2) g/dL Albumin 4.2 (3.5-5.0) g/dL Calcium panel 01/15/23 Range/Units 17:35 Calcium 9.1 (8.4-10.2) mg/dL Albumin 4.2 (3.5-5.0) g/dL Pituitary panel 01/15/23 Range/Units 17:35 Sodium 136 L (137-145) mmol/L Potassium 4.0 (3.5-5.1) mmol/L Chloride 102 (98-107) mmol/L Carbon Dioxide 28 (22-30) mmol/L BUN 7 (7-17) mg/dL Creatinine 0.55 (0.52-1.04) mg/dL Glucose 183 H (74-99) mg/dL Calcium 9.1 (8.4-10.2) mg/dL Adrenal panel 01/15/23 Range/Units 17:35 Sodium 136 L (137-145) mmol/L Potassium 4.0 (3.5-5.1) mmol/L Chloride 102 (98-107) mmol/L Carbon Dioxide 28 (22-30) mmol/L BUN 7 (7-17) mg/dL Creatinine 0.55 (0.52-1.04) mg/dL Glucose 183 H (74-99) mg/dL Calcium 9.1 (8.4-10.2) mg/dL Total Bilirubin 0.3 (0.2-1.3) mg/dL AST 19 (14-36) U/L ALT 18 (4-34) U/L Alkaline Phosphatase 73 (38-126) U/L Total Protein 7.0 (6.3-8.2) g/dL Albumin 4.2 (3.5-5.0) g/dL
[2023-01-16] MEDS: SODIUM CHLORIDE 0.9% 1,000 ML IV SCH ×2 (11:39→21:39)
[2023-01-16] MEDS: PANTOPRAZOLE 40 MG/10 ML VIAL IVP SCH (11:40)
--- NOTE | 2023-01-16 13:18 | P.CONS ---
History of Present Illness - Reason for Consult Consult date: 01/16/23 Medical management hypertension Requesting physician: Cleveland Phelan - Chief Complaint abd. pain - History of Present Illness This is a 47-year-old female with past medical history of abdominal hernia- outpatient monitoring with PCP ,obesity, obstructive sleep apnea, wears CPAP, ongoing nicotine dependence, hypertension, cholecystectomy and multiple other medical issues presented to the ER with complaints of lower abdominal pain. Denied nausea vomiting or diarrhea, reported last bowel movement-regular in color and consistency, earlier yesterday prior to admission. Denies chest pain, palpitations or shortness of breath. In a dentist dizziness or focal deficits. Denies syncope. KUB reported nonspecific gas pattern without radiographic evidence for acute process. CT of abdomen and pelvis reported ventral abdominal wall hernia containing dilated loops of small bowel and ascites concerning for focal small bowel obstruction, nonobstructing left renal calculus, low attenuating simple splenic cyst. Afebrile, normal WBC, electrolytes, renal function, within normal limits. Review of Systems ROS Statement: Those systems with pertinent positive or pertinent negative responses have been documented in the HPI. ROS Other: All systems not noted in ROS Statement are negative. Past Medical History Past Medical History: Hypertension, Sleep Apnea/CPAP/BIPAP Additional Past Medical History / Comment(s): sleep apnea with cpap History of Any Multi-Drug Resistant Organisms: None Reported Past Surgical History: Cholecystectomy Additional Past Surgical History / Comment(s): d&c Past Anesthesia/Blood Transfusion Reactions: Postoperative Nausea & Vomiting (PONV) Past Psychological History: No Psychological Hx Reported Smoking Status: Current some day smoker Past Alcohol Use History: None Reported Past Drug Use History: None Reported Medications and Allergies Home Medications Medication Instructions Recorded Confirmed Type Cyanocobalamin/Cobamamide [Vitamin 1 tab SUBLINGUAL DAILY 01/15/23 01/15/23 History B-12 5,000 Mcg Tab Sl] Loratadine 10 mg PO DAILY 01/15/23 01/15/23 History Pseudoephedrine 12Hr [Sudafed 12 60 mg PO Q12HR PRN 01/15/23 01/15/23 History Hour] buPROPion XL [Wellbutrin XL] 150 mg PO DAILY 01/15/23 01/15/23 History lisinopriL [Zestril] 10 mg PO DAILY 01/15/23 01/15/23 History Allergies Allergy/AdvReac Type Severity Reaction Status Date / Time fluticasone [From Flonase] Allergy Swelling Verified 01/15/23 18:13 in back of throat, tingling Penicillins Allergy Rash/Hives Verified 01/15/23 18:13 Physical Exam Vitals: Vital Signs Temp Pulse Pulse Resp BP BP Pulse Ox 01/16/23 07:03 98.7 F 103 H 16 157/79 96 01/16/23 03:48 01/16/23 01:41 98.7 F 70 16 139/75 98 01/15/23 23:52 01/15/23 23:08 98.3 F 98 17 153/97 100 01/15/23 20:43 98.5 F 93 18 151/86 97 01/15/23 17:16 98 F 74 18 156/82 100 FiO2 01/16/23 07:03 01/16/23 03:48 21 01/16/23 01:41 01/15/23 23:52 21 01/15/23 23:08 01/15/23 20:43 01/15/23 17:16 Intake and Output 01/15/23 01/16/23 01/16/23 22:59 06:59 14:59 Other: # Voids 2 1 Weight 97.522 kg PHYSICAL EXAM: VITAL SIGNS: [As above] GENERAL: Sitting up in bed, no acute distress HEENT: Normocephalic, atraumatic, Conjunctivae normal. eyes normal. NECK: Supple, No JVD. No thyroid enlargement. No LNs CARDIOVASCULAR: S1, S2 regular. No murmur RESPIRATION: Unlabored, Breath sounds diminished in the bases. No rhonchi or crackles. No bronchial breathing. ABDOMEN: Soft, nondistended, firm, tender supraumbilical hernia bulge,No rigidity, no guarding. Positive Bowel sounds heard. LEGS: No edema. no swelling PSYCHIATRY: Alert and oriented X3, mood and affect normal. NERVOUS SYSTEM: Cranial N 2-12 grossly normal. No focal deficits. Strength and sensation grossly intact. Skin: Warm and dry, no rash Results CBC & Chem 7: 01/15/23 17:35 01/15/23 17:35 Labs: Abnormal Lab Results - Last 24 Hours (Table) 01/15/23 01/15/23 Range/Units 17:35 18:30 Sodium 136 L (137-145) mmol/L Glucose 183 H (74-99) mg/dL Urine Appearance Cloudy H (Clear) Urine Glucose (UA) Trace H (Negative) Urine Blood Trace H (Negative) Urine RBC 7 H (0-5) /hpf Amorphous Sediment Rare H (None) /hpf Urine Mucus Rare H (None) /hpf Urine Yeast (Budding) Rare H (None) /hpf Assessment and Plan Assessment: Abdominal pain, CT reporting Ventral abdominal wall hernia containing dilated loops of small bowel, in a patient with prior history of abdominal hernia. Obesity, BMI 30.8 Obstructive sleep apnea, wears CPAP Hypertension Ongoing nicotine dependence Plan: Continue on current medication regime ,monitoring and symptomatic treatment. IV fluid hydration.NPO, scheduled for repair of ventral abdominal wall hernia today. Aggressive pulmonary toilet with incentive spirometer ordered. Smoking cessation reinforced. PPI ordered for GI prophylaxis. Pain management, DVT prophylaxis as per general surgery. The impression and plan of care has been dictated as directed. : I performed a history and examination of this patient, discussed the same with the dictator. I agree with the dictator's note ,documented as a scribe. Any additional findings or plans will be noted.
[2023-01-16] MEDS: LORATADINE 10 MG TAB PO SCH (13:27)
[2023-01-16] MEDS ORDERED: HYDROmorphone 0.5 MG/0.5 ML SYRINGE IVP ONE ×4 (15:03→17:27)
[2023-01-16] MEDS ORDERED: ONDANSETRON 4 MG/2 ML VIAL IVP ONE (15:03)
[2023-01-16] MEDS ORDERED: HEPARIN SODIUM,PORCINE/PF 5,000 UNIT/0.5 ML SYRINGE SQ ONE (15:18)
[2023-01-16] MEDS ORDERED: DEXAMETHASONE SOD PHOSPHATE 4 MG/ML 1 ML VIAL IV ONE (15:20)
[2023-01-16] MEDS ORDERED: LACTATED RINGERS 1,000 ML IV ONE (15:20)
[2023-01-16] MEDS ORDERED: MIDAZOLAM 2 MG/2 ML VIAL IV ONE (15:29)
[2023-01-16] MEDS ORDERED: fentaNYL (PF) 50 MCG/1 ML VIAL IV ONE (15:29)
[2023-01-16] MEDS ORDERED: PROPOFOL 10 MG/ML 20 ML VIAL IV ONE (15:58)
[2023-01-16] MEDS ORDERED: SUCCINYLCHOLINE CHLORIDE 200 MG/10 ML VIAL IV ONE (15:58)
[2023-01-16] MEDS ORDERED: NEOSTIGMINE 1 MG/ML 10 ML VIAL ONE (15:58)
[2023-01-16] MEDS ORDERED: MIDAZOLAM 2 MG/2 ML VIAL ONE (15:58)
[2023-01-16] MEDS ORDERED: SODIUM CHLORIDE 0.9% (PF) 10 ML VIAL ONE (15:58)
[2023-01-16] MEDS ORDERED: fentaNYL (PF) 50 MCG/ML 2 ML AMP ONE (15:58)
[2023-01-16] MEDS ORDERED: ROCURONIUM 10 MG/ML (5 ML VIAL) IV ONE (15:58)
[2023-01-16] MEDS ORDERED: KETAMINE 10 MG/ML 20 ML VIAL ONE (15:58)
[2023-01-16] MEDS ORDERED: ROPIVACAINE 5 MG/ML 30 ML VIAL ONE (15:58)
[2023-01-16] MEDS ORDERED: LIDOCAINE 2% INJ 20 MG/ML (2 ML VIAL) ONE (15:58)
[2023-01-16] MEDS ORDERED: DEXAMETHASONE SOD PHOSPHATE 4 MG/ML 1 ML VIAL ONE (15:58)
[2023-01-16] MEDS ORDERED: GLYCOPYRROLATE 0.2 MG/ML 2 ML VIAL ONE (15:58)
[2023-01-16] MEDS ORDERED: SODIUM CHLORIDE 0.9% 50 ML with ceFAZolin 2,000 MG IV ONE ×2 (16:03)
--- NOTE | 2023-01-16 16:31 | P.ANPRN ---
Procedure Note - Anesthesia - Nerve Block Performed Bilateral Erector Spinae Single Time Out Performed: Yes Date of Procedure: 01/16/23 Procedure Start Time: 15:28 Procedure Stop Time: 15:36 Location of Patient: PreOp Indication: Acute Post-Operative Pain, Requested by Surgeon Sedation Type: Sedate with meaningful contact maintained Preparation: Sterile Prep Position: Sitting Needle Types: Pajunk Needle Gauge: 21 Ultrasound used to observe medication spread: Yes Injectate: 0.5% Ropivacaine (see comment for volume) (15 ml +15 ml NS +4 mg dexamethasone per side) Blood Aspirated: No Pain Paresthesia on Injection Noted: No Resistance on Injection: Normal Image Stored and Saved: Yes Events: Uneventful and Well Tolerated
[2023-01-16] MEDS ORDERED: HYDROcodone/APAP 7.5-325MG 1 EACH TAB PO PRN (16:56)
--- NOTE | 2023-01-16 16:56 | P.OP ---
Date of Procedure: 01/16/23 Preoperative Diagnosis: Incarcerated ventral hernia Postoperative Diagnosis: Incarcerated ventral hernia Procedure(s) Performed: Open repair of incarcerated ventral hernia Anesthesia: GIOVANNI Surgeon: Cleveland Phelan Estimated Blood Loss (ml): 10 Pathology: other (Hernia sac) Condition: stable Disposition: PACU Operative Findings: 12 cm incarcerated ventral hernia Description of Procedure: The patient's placed on the operative table in the supine position. She received general endotracheal anesthesia. Her abdomen was prepped and draped usual fashion. The patient had a large ventral hernia located above the umbilicus. Skin was incised over the scope hernia sac. Then using blunt sharp dissection with cautery the hernia sac was dissected free from the subcutaneous tissues. The hernia sac was opened. There was incarcerated small bowel within the hernia. The small bowel appeared viable. The neck of the hernia was opened with left cautery. And the small bowel was reduced. The hernia sac was then transected with electrocautery and sent to pathology. The fascial defect measured approximately also midline. The fascial defect was then closed using. 0 Ethibond suture. Skin was closed with running 3-0 Monocryl suture. Dermabond was applied. Patient top she will was sent to recovery room in stable condition.
[2023-01-16] MEDS: HYDROmorphone 1 MG/ML 1 ML SYRINGE IVP PRN (21:37)
[2023-01-17] MEDS: ONDANSETRON 4 MG/2 ML VIAL IVP PRN (02:59)
[2023-01-17] MEDS: HYDROmorphone 1 MG/ML 1 ML SYRINGE IVP PRN ×4 (02:59→20:00)
[2023-01-17] MEDS: PANTOPRAZOLE 40 MG/10 ML VIAL IVP SCH (07:51)
[2023-01-17] MEDS: LORATADINE 10 MG TAB PO SCH (07:52)
[2023-01-17] MEDS: ENOXAPARIN 40 MG/0.4 ML SYRINGE SQ SCH (07:52)
[2023-01-17] MEDS: SODIUM CHLORIDE 0.9% 1,000 ML IV SCH (07:53)
[2023-01-17] MEDS: DOCUSATE 100 MG CAP PO SCH ×2 (10:19→19:29)
--- NOTE | 2023-01-17 11:27 | P.PN ---
Subjective Progress Note Date: 01/17/23 CHIEF COMPLAINT: Incarcerated ventral hernia HISTORY OF PRESENT ILLNESS: Patient is postop day #1 status post open repair of incarcerated ventral hernia. She reports her pain is controlled. She reports t hat her pain. Different prior to surgery. She denies any nausea or vomiting. She is teary-eyed this morning and reports she has a lot of outside stress. Afebrile. No new labs. Patient requesting a stool softener Patient seen and examined with Dr. Phelan PHYSICAL EXAM: VITAL SIGNS: Reviewed. GENERAL: Well-developed in no acute distress. HEENT: No sclera icterus. Extraocular movements grossly intact. Moist buccal mucosa. Head is atraumatic, normocephalic. ABDOMEN: Soft. Nondistended. NEUROLOGIC: Alert and oriented. Cranial nerves II through XII grossly intact. ASSESSMENT: 1. Incarcerated ventral hernia status post open repair PLAN: -Add Colace for constipation -Encouraged patient to ambulate -Continue pain management -Discontinue IV fluids -Continue regular diet -Anticipate discharge home tomorrow -DVT prophylaxis Lovenox and GI prophylaxis Protonix Physician Gun Perforator Loader note has been reviewed by physician. Signing provider agrees with the documented findings, assessment, and plan of care. Objective - Vital Signs Vital signs: Vital Signs Temp 98.1 F 01/17/23 06:53 Pulse 68 01/17/23 06:53 Resp 18 01/17/23 06:53 BP 130/80 01/17/23 06:53 Pulse Ox 94 L 01/17/23 06:53 FiO2 21 01/16/23 23:54 Intake & Output 01/16/23 01/17/23 01/17/23 18:59 06:59 18:59 Intake Total 550 Output Total 10 Balance 540 Weight 97.52 kg Intake: IV 550 Output: Estimated Blood Loss 10 Other: # Voids 1 1 1 - Labs CBC & Chem 7: 01/15/23 17:35 01/15/23 17:35
--- NOTE | 2023-01-17 13:22 | P.PN ---
Subjective Progress Note Date: 01/17/23 - History of Present Illness This is a 47-year-old female with past medical history of abdominal hernia- outpatient monitoring with PCP ,obesity, obstructive sleep apnea, wears CPAP, ongoing nicotine dependence, hypertension, cholecystectomy and multiple other medical issues presented to the ER with complaints of lower abdominal pain. Denied nausea vomiting or diarrhea, reported last bowel movement-regular in color and consistency, earlier yesterday prior to admission. Denies chest pain, palpitations or shortness of breath. In a dentist dizziness or focal deficits. Denies syncope. KUB reported nonspecific gas pattern without radiographic evidence for acute process. CT of abdomen and pelvis reported ventral abdominal wall hernia containing dilated loops of small bowel and ascites concerning for focal small bowel obstruction, nonobstructing left renal calculus, low a ttenuating simple splenic cyst. Afebrile, normal WBC, electrolytes, renal function, within normal limits. 01/17/2023 status post open repair of incarcerated ventral hernia, postop day #1, tolerated procedure well. Pain controlled . Denies nausea vomiting or diarrhea. Reports no bowel movement. Passing flatus. Ambulating, tolerating exertion well. Denies chest pain, palpitations or shortness of breath. Maintaining O2 sats in the mid 90s on room air Afebrile. Objective - Vital Signs Vital signs: Vital Signs Temp 98.1 F 01/17/23 06:53 Pulse 68 01/17/23 06:53 Resp 18 01/17/23 06:53 BP 130/80 01/17/23 06:53 Pulse Ox 94 L 01/17/23 06:53 FiO2 21 01/16/23 23:54 Intake & Output 01/16/23 01/17/23 01/17/23 18:59 06:59 18:59 Intake Total 550 Output Total 10 Balance 540 Weight 97.52 kg Intake: IV 550 Output: Estimated Blood Loss 10 Other: # Voids 1 1 1 - Exam PHYSICAL EXAM: VITAL SIGNS: [As above] GENERAL: Alert and oriented 3, Sitting up in bed, no acute distress HEENT: Normocephalic, atraumatic, Conjunctivae normal. eyes normal. NECK: Supple, No JVD. No thyroid enlargement. No LNs CARDIOVASCULAR: S1, S2 regular. No murmur RESPIRATION: Unlabored, Breath sounds diminished in the bases. No rhonchi or crackles. No bronchial breathing. ABDOMEN: Soft, status post surgery, abdominal binder present, dressing clean dry and intact LEGS: No edema. no swelling NERVOUS SYSTEM: Cranial N 2-12 grossly normal. No focal deficits. Strength and sensation grossly intact. Skin: Warm and dry, no rash - Labs CBC & Chem 7: 01/15/23 17:35 01/15/23 17:35 Assessment and Plan Assessment: Abdominal pain, CT reporting Ventral abdominal wall hernia containing dilated loops of small bowel, in a patient with prior history of abdominal hernia. Status post open repair. Obesity, BMI 30.8 Obstructive sleep apnea, wears CPAP Hypertension Ongoing nicotine dependence Plan: Continue on current medication regime ,monitoring and symptomatic treatment. Diet advancement/Pain management as per primary. Surgical pathology of hernia sac pending.Lovenox in place for DVT prophylaxis, Protonix for GI prophylaxis. Aggressive pulmonary toileting with incentive spirometer reinforced. Increase ambulation as tolerated. The impression and plan of care has been dictated as directed. : I performed a history and examination of this patient, discussed the same with the dictator. I agree with the dictator's note ,documented as a scribe. Any additional findings or plans will be noted.
[2023-01-17] MEDS ORDERED: SALINE NASAL GEL 14.1 GM TUBE NASAL PRN (13:52)
[2023-01-17 15:21] LABS: African American GFR (CKD) >90 (>60 ml/min/1.73 sqM); Anion Gap 5 mmol/L; Blood Urea Nitrogen 8 mg/dL (7-17); Carbon Dioxide 30 mmol/L (22-30); Chloride 103 mmol/L (98-107); Glucose 101 mg/dL (74-99); Non-African American GFR(CKD) >90 (>60 ml/min/1.73 sqM); Potassium 4.2 mmol/L (3.5-5.1); Sodium 138 mmol/L (137-145)
[2023-01-17 15:24] LABS: Basophils # (A) 0.02 X 10*3/uL (0.00-0.10); Basophils % (A) 0.1 %; Eosinophils # (A) 0.01 X 10*3/uL (0.04-0.35); Eosinophils % (A) 0.1 %; HCT 43.5 % (37.2-46.3); HGB 13.7 g/dL (12.0-15.0); Immature Grans, Automated 0.4 %; Lymphocytes # (A) 2.16 X 10*3/uL (0.90-5.00); Lymphocytes % (A) 12.8 %; MCH 31.1 pg (27.0-32.0); MCHC 31.5 g/dL (32.0-37.0); MCV 98.6 fL (80.0-97.0); Mean Platelet Volume 10.4 fL (9.5-12.2); Monocytes # (A) 1.05 X 10*3/uL (0.20-1.00); Monocytes % (A) 6.2 %; NRBC Per 100 WBC 0 /100 WBCS (0.0-0.0); Neutrophils % (A) 80.4 %; Platelet Count 243 X 10*3/uL (140-440); RBC 4.41 X 10*6/uL (4.10-5.20); RDW 12.3 % (11.5-14.5)
[2023-01-17] MEDS ORDERED: SODIUM CHLORIDE 0.65% NASAL SPRAY 44 ML BTL NASAL PRN (20:02)
[2023-01-18] MEDS: ONDANSETRON 4 MG/2 ML VIAL IVP PRN (00:02)
[2023-01-18] MEDS: DOCUSATE 100 MG CAP PO SCH (09:15)
[2023-01-18] MEDS: LORATADINE 10 MG TAB PO SCH (09:15)
[2023-01-18] MEDS: ENOXAPARIN 40 MG/0.4 ML SYRINGE SQ SCH (09:15)
[2023-01-18] MEDS: PANTOPRAZOLE 40 MG/10 ML VIAL IVP SCH (09:16)
[2023-01-18 09:22] LABS: Basophils % (A) 0 %; Eosinophils # (A) 0.1 k/uL (0-0.7); Eosinophils % (A) 1 %; HCT 41.1 % (34.0-46.0); HGB 13.3 gm/dL (11.4-16.0); Lymphocytes # (A) 1.9 k/uL (1.0-4.8); Lymphocytes % (A) 21 %; MCH 31.3 pg (25.0-35.0); MCHC 32.3 g/dL (31.0-37.0); MCV 96.7 fL (80.0-100.0); Mean Platelet Volume 7.6; Monocytes # (A) 0.4 k/uL (0-1.0); Monocytes % (A) 5 %; Neutrophils # (A) 6.6 k/uL (1.3-7.7); Neutrophils % (A) 73 %; Platelet Count 216 k/uL (150-450); RBC 4.25 m/uL (3.80-5.40); RDW 12.1 % (11.5-15.5); WBC 9.1 k/uL (3.8-10.6)
--- NOTE | 2023-01-18 12:34 | P.DS ---
Providers Date of admission: 01/15/23 20:30 Expected date of discharge: 01/18/23 Attending physician: Gee Ga Consults: 01/15/23 20:49 Consult Physician Routine Consulting Provider: John Coker Consult Reason/Comments: abdominal wall hernia with SBO Do you want consulting provider notified?: Yes Primary care physician: John Coker Hospital Course: Discharge diagnosis 1. Incarcerated ventral hernia status post open repair Hospital course This is a 47-year-old female with a known history of ventral hernia who presented to the hospital with complaints of abdominal pain. Computed tomography scan abdomen and pelvis completed that did show a ventral abdominal wall hernia containing dilated loops of small bowel and ascites. CT scan findings are concerning for focal small bowel obstruction. Patient is status post open repair of incarcerated ventral hernia. Her pain is controlled. She is having flatus. She is tolerating diet. She's afebrile. Her white count has normalized. She is up and ambulating. She is stable for discharge. Please refer to chart for any further details. Physician Manager Strategic note has been reviewed by physician. Signing provider agrees with the documented findings, assessment, and plan of care. Patient Condition at Discharge: Stable Plan - Discharge Summary Discharge Rx Participant: No New Discharge Prescriptions: New HYDROcodone/APAP 5-325MG [Holliday 5-325] 1 tab PO Q6HR PRN 3 Days #12 tab PRN Reason: Pain Docusate [Colace] 100 mg PO BID #30 capsule Continue Cyanocobalamin/Cobamamide [Vitamin B-12 5,000 Mcg Tab Sl] 1 tab SUBLINGUAL DAILY lisinopriL [Zestril] 10 mg PO DAILY buPROPion XL [Wellbutrin XL] 150 mg PO DAILY Pseudoephedrine 12Hr [Sudafed 12 Hour] 60 mg PO Q12HR PRN PRN Reason: Congestion Loratadine 10 mg PO DAILY Discharge Medication List Cyanocobalamin/Cobamamide [Vitamin B-12 5,000 Mcg Tab Sl] 1 tab SUBLINGUAL DAILY 01/15/23 [History] Loratadine 10 mg PO DAILY 01/15/23 [History] Pseudoephedrine 12Hr [Sudafed 12 Hour] 60 mg PO Q12HR PRN 01/15/23 [History] buPROPion XL [Wellbutrin XL] 150 mg PO DAILY 01/15/23 [History] lisinopriL [Zestril] 10 mg PO DAILY 01/15/23 [History] Docusate [Colace] 100 mg PO BID #30 capsule 01/18/23 [Rx] HYDROcodone/APAP 5-325MG [Holliday 5-325] 1 tab PO Q6HR PRN 3 Days #12 tab 01/18/23 [Rx] Follow up Appointment(s)/Referral(s): John Coker MD [Primary Care Provider] - 3 Days Cleveland Phelan MD [STAFF PHYSICIAN] - 1 Week Activity/Diet/Wound Care/Special Instructions: No driving while taking Holliday No lifting over 10 pounds Shower daily. No soaking or tub baths for 2 weeks Very light activity until you are reevaluated at your follow up appointment with your surgeon Discharge Disposition: HOME SELF-CARE
[2023-01-18 13:38] VITALS: BP 148/76; PULSE 89; RESP 16; TEMP 98.6
== END 2023-01-18 14:22 | disposition home or self-care (01) | DRG 227 ==
LOC: EC 16:57 → 4SSUR 20:30
PROVIDERS: ADMIT Surgery; ATTEND Surgery
PROC: 0WQF0ZZ Repair Abdominal Wall, Open Approach (ICD-10-PCS; principal; 2023-01-16 08:30)
DX: K43.6 Other and unspecified ventral hernia with obstruction, without gangrene (principal); I10 Essential (primary) hypertension; G47.33 Obstructive sleep apnea (adult) (pediatric); F17.210 Nicotine dependence, cigarettes, uncomplicated; Z28.310 Unvaccinated for COVID-19; N20.0 Calculus of kidney; R18.8 Other ascites; Z79.899 Other long term (current) drug therapy; Z90.49 Acquired absence of other specified parts of digestive tract; D73.4 Cyst of spleen; E66.9 Obesity, unspecified; Z68.30 Body mass index [BMI] 30.0-30.9, adult; Z88.0 Allergy status to penicillin; Z88.8 Allergy status to other drugs, medicaments and biological substances
CPT/HCPCS: 36415; 74018; 74177; 80048; 80053; 81001; 81025; 82150; 83605; 83690; 85025; 87636; 88302; 94660; 94760; 96361; 96374; 96375; 96376; 99285